=== PATIENT | female | born 1970 | race Caucasian/White ===

== ENCOUNTER 2017-05-24 23:40 | Emergency (ER) | payer BC, OTHER ==
[~2017-05-24] VITALS: Ht 160 cm; Wt 101.5 kg
[~2017-05-24 23:40] MED LIST: ADVAIR; BIRTH CONTROL PILLS; ZOLOFT
[2017-05-24 23:42] VITALS: Ht 160 cm; Wt 101.5 kg
--- NOTE | 2017-05-25 03:19 | RADRPT ---
PROCEDURE: CT CERVICAL SPINE WITHOUT CONTRAST CLINICAL INDICATION: 46-year-old female with neck pain following trauma. TECHNIQUE: The study was performed utilizing a [employer] VCT 64-slice CT scanner. Direct axia l sections were obtained through the cervical spine. Coronal and sagittal re-formations were obtain ed. One or more of the following dose reduction techniques were utilized: automated exposure control , adjustment of the mA and/or kV according to patient's size or use of iterative reconstruction tech nique. The images were viewed on a PACS workstation. CTD/vol = 31.6 mGy; Total Exam DLP = 772.7 mGy -cm. COMPARISON: None. FINDINGS: There is straightening of the normal cervical lordosis. Otherwise, the cervical vertebral bodies salazar ve normal heights and anatomic alignment. There is no evidence for acute cervical spine fracture. M ild degenerative changes are seen at the atlantoaxial junction. There is an anatomic variant with i ncomplete ossification of the posterior arch of C1. At C2-3 there is minimal bilateral uncovertebral degenerative changes without significant central or foraminal stenosis. There is partial fusion of the C3-4 interspace as well as the posterior elements. There is no signi ficant central or foraminal stenosis. At C4-5 there is posterior disk-osteophyte complex projecting 3 mm beyond the posterior margin. The re are bilateral uncovertebral degenerative changes resulting in [id number] left foraminal susu nosis. At C5-6 there is mild disk space narrowing. There are minimal uncovertebral degenerative changes. There is no significant central or foraminal stenosis. At C6-7 there is mild posterior disk-osteophyte complex projecting 2 mm beyond the posterior margin. There are bilateral uncovertebral degenerative changes without significant foraminal stenosis. At C7-T1 the disk space has a normal appearance. There is no significant central or foraminal steno sis. Shotty lymph nodes are seen throughout the neck. IMPRESSION: 1. Straightening of the normal cervical lordosis. 2. No CT evidence for acute cervical spine fracture. 3. Mild cervical spondylosis. 4. 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 5. 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 .Ap Oglesby MD, MD Date Time Electronically viewed and signed by .Ap Oglesby MD, on 05/25/2017 03:19 .M/
[2017-05-25] MEDS ORDERED: IBUP-1542 PO (03:48)
[2017-05-25] MEDS ORDERED: DIAZ2TAB3 PO (03:48)
--- NOTE | 2017-05-25 03:48 | ERD ---
ER Documentation Chief Complaint Date/Time DATE: 05/25/17 Chief Complaint Neck pain, Fall HPI The patient is a 46-year-old female who presents to the emergency department with complaint of neck pain s/p fall, requesting imaging. The patient reports that this evening she was paddleboarding, when she fell forward, onto her upper extremities. She now reports some pain to her neck, which she thinks she may have strained, and pain to both upper extremities, extending from the elbows down towards the hands. The patient is concerned that she have injured her neck , given pain to her upper extremities, and is requesting imaging. She does note a history of carpal tunnel, though states that her pain has worsened since the fall. She denies headache, dizziness, nausea, vomiting. Denies weakness of the neck. Denies visual changes, diplopia, blurred vision, vision loss, shortness of breath, stridor, hoarseness, dysphagia, altered mental status, contusion, abrasions. Denies numbness, paresthesias or weakness of the distal extremities. Denies restricted range of motion of the extremities. She rates her current pain as 3/10. She took 800 mg Ibuprofen PO prior to arrival. No other complaints at this time. ROS All systems reviewed and are negative except as per history of present illness. Medications Home Meds Active Scripts Diazepam* (Diazepam*) 2 Mg Tablet, 2 MG PO Q8, #10 TAB Prov:MIKE MEJIA PA-C 05/25/17 Ibuprofen* (Motrin*) 600 Mg Tab, 600 MG PO Q6, #30 TAB Prov:MIKE MEJIA PA-C 05/25/17 Reported Medications [ Control Pills] No Conflict Check 02/25/10 [Advair] No Conflict Check 02/25/10 [Zoloft] No Conflict Check 02/25/10 Allergies Allergies: Coded Allergies: Penicillins (Verified Allergy, Mild, 02/25/10) PMhx/Soc History of Surgery: Yes (BIOPSY OF UTERUS 2008) Anesthesia Reaction: No Hx Neurological Disorder: No Hx Respiratory Disorders: Yes (HX ASTHMA) Hx Cardiac Disorders: Yes (HTN) Hx Psychiatric Problems: No Hx Miscellaneous Medical Probl: No Hx Alcohol Use: Yes (OCCASIONAL) Hx Substance Use: No Hx Tobacco Use: No Smoking Status: Never smoker Physical Exam Vitals Vital Signs Date Time Temp Pulse Resp B/P Pulse Ox O2 Delivery O2 Flow Rate FiO2 05/25/17 04:12 97.7 70 18 118/56 99 Room Air 05/24/17 23:42 98.3 103 18 146/66 97 Physical Exam GENERAL: Well-developed, well-nourished, in no acute distress HEENT: Head is normocephalic, atraumatic. No scleral pallor or icterus. Pupils equal, round and reactive to light. Extraocular movements intact. Conjunctiva pink. Moist mucous membranes. NECK: Supple. No masses, no tenderness, no lymphadenopathy. Trachea midline. No nuchal rigidity. Full range of motion. No crepitus. No posterior midline cervical tenderness. RESPIRATORY: Lungs are clear to auscultation bilaterally. No rales, rhonchi or wheezing. Equal breath sounds. Normal expiratory effort. CARDIOVASCULAR: Regular rate and rhythm. S1 and S2 normal. No murmurs, rubs, or gallops. GASTROINTESTINAL: Abdomen is soft, nontender, and nondistended. Normal bowel sounds. FLANK: No CVA tenderness, no mass or swelling. BACK: No midline tenderness. No paraspinal tenderness. EXTREMITIES: No clubbing, cyanosis, or edema. Normal skin perfusion. Full range of motion of both the upper and lower extremities bilaterally. Muscle tone is normal. No focal swelling or erythema. Distal pulses are palpable, 2+ bilaterally. Capillary refill is less than 2 seconds. NEUROLOGIC: The patient is alert, awake, and oriented x 3. No focal neurologic deficits. Cranial nerves are grossly intact. Gait is observed and normal. There is no ataxia. Motor and sensation grossly intact. Coordination normal. Speech is normal. Normal director blood bank strength bilaterally. INTEGUMENT: Skin is clean, dry and intact. No rashes, lesions or petechiae present. Normal turgor. PSYCHIATRIC: Appropriate; Cooperative. Procedures/[facility] EMERGENCY DEPARTMENT COURSE: CT imaging performed. Patient took 800 mg Ibuprofen prior to arrival, and drove to the ED. Tylenol offered for pain control, but declined by patient, stating that she only presented for imaging. On reevaluation, she has no new complaints. The patient's case was reviewed and discussed with ED supervising physician, Dr. Gray, who agrees with management, plan for CT imaging and discharge home if no acute abnormalities are found. Given patient history, presentation (with complaint of discomfort to bilateral upper extremities), he states that there are likely no emergent processes at this time. DIAGNOSTIC TESTS AND INTERPRETATION: PROCEDURE: CT CERVICAL SPINE WITHOUT CONTRAST CLINICAL INDICATION: 46-year-old female with neck pain following trauma. TECHNIQUE: The study was performed utilizing a [employer] VCT 64-slice CT scanner. Direct axial sections were obtained through the cervical spine. Coronal and sagittal re-formations were obtained. One or more of the following dose reduction techniques were utilized: automated exposure control, adjustment of the mA and/or kV according to patient's size or use of iterative reconstruction technique. The images were viewed on a PACS workstation. CTD/ vol = 31.6 mGy; Total Exam DLP = 772.7 mGy-cm. COMPARISON: None. FINDINGS: There is straightening of the normal cervical lordosis. Otherwise, the cervical vertebral bodies have normal heights and anatomic alignment. There is no evidence for acute cervical spine fracture. Mild degenerative changes are seen at the atlantoaxial junction. There is an anatomic variant with incomplete ossification of the posterior arch of C1. At C2-3 there is minimal bilateral uncovertebral degenerative changes without significant central or foraminal stenosis. There is partial fusion of the C3-4 interspace as well as the posterior elements. There is no significant central or foraminal stenosis. At C4-5 there is posterior disk-osteophyte complex projecting 3 mm beyond the posterior margin. There are bilateral uncovertebral degenerative changes resulting in [id number] left foraminal stenosis. At C5-6 there is mild disk space narrowing. There are minimal uncovertebral degenerative changes. There is no significant central or foraminal stenosis. At C6-7 there is mild posterior disk-osteophyte complex projecting 2 mm beyond the posterior margin. There are bilateral uncovertebral degenerative changes without significant foraminal stenosis. At C7-T1 the disk space has a normal appearance. There is no significant central or foraminal stenosis. Shotty lymph nodes are seen throughout the neck. IMPRESSION: 1. Straightening of the normal cervical lordosis. 2. No CT evidence for acute cervical spine fracture. 3. Mild cervical spondylosis. 4. 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 5. 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 .Ap Oglesby MD, Date Time Electronically viewed and signed by .Ap Oglesby MD, MD on 05/25/2017 03:19 MEDICAL DECISION MAKING: This is a 46-year-old female presenting to the emergency department with a complaint of neck pain and bilateral upper extremity pain s/p fall on paddleboard today. The patient had no presence of posterior midline cervical tenderness, intoxication, abnormal neurologic findings, painful distracting injuries and was appropriately alert. The differential diagnosis includes, but is not limited to, intracranial hemorrhage , spinal cord trauma, vertebral artery dissection, carotid artery dissection, whiplash injury, cervical spine fracture, cervical spine dislocation, strangulation, thoracic trauma, abdominal trauma, head trauma, skull fracture, cauda equina syndrome, vertebral fracture, herniated disk. There is no current evidence of head trauma. No loss of consciousness. I do not suspect any form of intracranial hemorrhage. No significant acute abnormalities on C-spine CT. After rest, the patient reports no new complaints. Upon my review and interpretation of the patient's presentation and overall ER course, I believe that the patient's symptoms are most consistent with neck pain s/p fall, possibly cervical strain. At this time, the patient is in stable condition and, therefore, can be discharged home with prescriptions for Ibuprofen and Diazepam with strict return precautions for signs of deteriorating condition or worsening condition. She is advised to follow up with her primary care provider for reevaluation and further management within the next 2 to 3 days or to return to the ER sooner for any new or worsening symptoms. I shared my medical decision making with the patient at length and in great detail, and the patient verbally understands and agrees with the plan for further observation and care as an outpatient. At the time of discharge, all questions were answered. Departure Diagnosis: Primary Impression: Fall Encounter type: initial encounter Qualified Code: W19.XXXA - Fall, initial encounter Additional Impression: Cervical strain Encounter type: initial encounter Qualified Code: S16.1XXA - Cervical strain , initial encounter Condition: Stable Patient Instructions: Neck Spasm, No Trauma, Neck Sprain/Strain, Radiculopathy , Cervical, Self-Care for Strains and Sprains Additional Instructions: Call your primary care doctor TOMORROW for an appointment during the next 2-3 days.See the doctor sooner or return here if your condition worsens before your appointment time. MIEK MEJIA PA-C May 25, 2017 03:48
[2017-05-25 04:12] VITALS: BP 118/56; PULSE 70; RESP 18; TEMP 97.7
== END 2017-05-25 04:12 | disposition home or self-care (01) ==
LOC: FTE 23:40
DX: S16.1XXA Strain of muscle, fascia and tendon at neck level, initial encounter (principal); J45.909 Unspecified asthma, uncomplicated; I10 Essential (primary) hypertension; W18.39XA Other fall on same level, initial encounter; Y92.9 Unspecified place or not applicable
CPT/HCPCS: 72125